=== PATIENT | male | born 1995 | race African-American/Black ===

== ENCOUNTER 2017-01-09 02:03 | Emergency (ER) | payer MEDICAID ==
[~2017-01-09] VITALS: Ht 170.2 cm; Wt 71.0 kg
[2017-01-09 02:33] VITALS: BP 115/71
== END 2017-01-09 07:39 | disposition left against medical advice (07) ==
LOC: ER 02:03
DX: J00 Acute nasopharyngitis [common cold] (principal); Z53.21 Procedure and treatment not carried out due to patient leaving prior to being seen by health care provider